=== PATIENT | male | born 2005 | race African-American/Black ===

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

== ENCOUNTER 2024-03-17 11:57 | Emergency (ER) | payer MEDICAID ==
[~2024-03-17] VITALS: Ht 190.5 cm; Wt 118.0 kg
[2024-03-17 12:11] VITALS: O2SAT 98
[2024-03-17 12:20] VITALS: BP 147/63; PULSE 88; RESP 16; TEMP 37.00296; O2SAT 98
== END 2024-03-17 13:01 | disposition home or self-care (01) ==
LOC: ER 11:57
DX: J11.1 Influenza due to unidentified influenza virus with other respiratory manifestations (principal)
CPT/HCPCS: 99281

== ENCOUNTER 2024-03-25 13:33 | Emergency (ER) | payer MEDICAID, OTHER ==
[~2024-03-25] VITALS: Ht 190.5 cm; Wt 122.4 kg
[2024-03-25 13:43] VITALS: BP 137/71; PULSE 72; RESP 16; TEMP 97.9; O2SAT 98; O2SAT 99
[2024-03-25] MEDS: KETOROLAC 15MG/ML VIAL IM ONE (15:43)
[2024-03-25] MEDS: METOCLOPRAMIDE HCL 10MG TABLET PO ONE (15:43)
[2024-03-25] MEDS ORDERED: BENZ100C86 MT (16:09)
== END 2024-03-25 16:16 | disposition home or self-care (01) ==
LOC: ER 13:33
DX: J06.9 Acute upper respiratory infection, unspecified (principal); B97.89 Other viral agents as the cause of diseases classified elsewhere
CPT/HCPCS: 71045; 96372; 99283; J8597; J1885; Z7610